=== PATIENT | male | born 1945 | race Caucasian/White ===

== ENCOUNTER 2016-12-18 14:52 | Inpatient (IN) | payer OTHER ==
[~2016-12-18] VITALS: Ht 185.4 cm; Wt 95.2 kg
[~2016-12-18 14:52] MED LIST: ALDACTONE50 MG PO; ALEVE220 MG PO; ANTACID GELATI1 EACH PO; ASCORBIC ACID500 M3 PO; B COMPLETE1 EACH PO; BUSPAR5 MG PO; CALCIUM 600 +1 EA15 PO; CLARITIN,ALAVAR10 MG PO; CLARITIN10 M3 PO; COLACE100 MG PO; COUMADIN1 MG PO; DELTASONE20 M1 PO; DEXILANT60 MG PO; DILAUDID2 MG PO; EFFEXOR XR75 MG PO; EFFEXOR75 MG PO; ENDOCET 5-3251 EACH PO; ENULOSE10 GM/15 M PO; FISH OIL 1,0001 EAC7 PO; FISH OIL CONC1 EACH PO; FOLIC ACID1 MG PO; GABAPENTIN100 MG PO; GABAPENTIN300 MG PO; HYDROMORPHONE HC2 MG PO; INDERAL20 MG PO; KRISTALOSE10 GM PO; LACTULOSE10 GM/151 PO; LASIX40 MG PO; LASIX80 MG PO; LEVAQUIN500 MG PO; LEVOTHYROXINE25 MCG PO; LEXAPRO; LEXAPRO20 MG PO; MAG-OXIDE400 MG PO; MECLIZINE HCL25 MG PO; MORPHINE SULFAT15 M1 PO; NAPROSYN500 MG PO; NEURONTIN300 MG PO; NORVASC10 MG PO; OMEPRAZOLE40 M1 PO; OXYCODONE HCL5 MG PO; PROPRANOLOL HCL10 MG PO; PROTONIX40 MG PO; PROVENTIL,2.5 MG/3 M IH; ROBITUSSIN AC,T10 ML PO; SPIRONOLACTONE100 MG PO; SPIRONOLACTONE50 MG PO; SUPER B WITH V1 EACH PO; SYNTHROID25 MCG PO; THERAGRAN1 TABLET PO; TIZANIDINE HCL2 MG PO; TOPAMAX25 MG PO; TRAZAMINE PO; TRAZODONE HCL50 MG PO; VAPOR INHALER50 MG BOTH NARES; VENTOLIN HFA18 GM IH; VITAMIN B-1100 MG PO; VITAMIN D2000 UNIT PO; VITAMIN D31000 UNIT PO; ZADITOR 0.100 DROP/5 BOTH EYES; ZINC30 M1 PO
[2016-12-18 17:28] LABS: HEMATOCRIT 32.6 % (38.0-50.0); MCH 25.3 PG (29.0-34.0); MCHC 30.7 G/DL (30.0-36.0); MCV 82.5 FL (86-99); MEAN PLAT.VOLUME 10.4 uM^3 (9.0-12.4); PLATELET COUNT 117 K/uL (156-360); RBC DIS.WIDTH-CV 18.5 % (11.8-14.6); RBC DIS.WIDTH-SD 55.8 % (39-53); RED BLOOD COUNT 3.95 M/uL (4.00-5.50); WHITE BLOOD COUNT 8.9 K/uL (4.1-10.2)
[2016-12-18 17:35] LABS: INTER. NORMALIZED RATIO 1.2; PROTHROMBIN TIME 13.1 SEC (10.2-12.9)
[2016-12-18 17:36] LABS: CHLORIDE 108 mEq/L (99-109); SODIUM 143 mEq/L (136-147)
[2016-12-18 17:38] LABS: GLUCOSE 91 mg/dL (70-99)
[2016-12-18 17:39] LABS: ANION GAP 9 MEQ/L (2-14)
[2016-12-18 17:42] LABS: GFR ESTIMATE (CALCULATED) > 59 mL/min/
[2016-12-18 17:43] LABS: UREA NITROGEN (BUN) 15 mg/dL (9-23)
[2016-12-18 17:48] LABS: TROP-I INTERPRETATION NEGATIVE; TROPONIN-I < 0.01 ng/mL (0.0-0.30)
[2016-12-18 18:02] LABS: POTASSIUM 3.2 mEq/L (3.7-5.4)
[2016-12-18] MEDS ORDERED: MIRTAZAPINE7.5 MG PO (19:55)
[2016-12-18] MEDS ORDERED: INDERAL10 MG PO (19:55)
[2016-12-18] MEDS ORDERED: FISH OIL 1,0001 EAC7 PO (19:57)
[2016-12-18 21:45] VITALS: BP 131/82
[2016-12-18 22:00] VITALS: BP 126/79
[2016-12-18 23:00] VITALS: BP 131/79
[2016-12-18 23:06] LABS: METH RESISTANT S AUREUS PCR NEGATIVE (NEGATIVE)
[2016-12-18 23:09] LABS: PROBE CHECK PASS; SPECIMEN PROCESSING CONTROL PASS
[2016-12-19] VITALS (14 sets, daily range): BP systolic 120–144; BP diastolic 73–97
[2016-12-19 06:07] LABS: HEMATOCRIT 33.8 % (38.0-50.0); MCH 24.4 PG (29.0-34.0); MCHC 29.6 G/DL (30.0-36.0); MCV 82.6 FL (86-99); PLATELET COUNT 84 K/uL (156-360); RBC DIS.WIDTH-CV 18.5 % (11.8-14.6); RBC DIS.WIDTH-SD 55.8 % (39-53); RED BLOOD COUNT 4.09 M/uL (4.00-5.50); WHITE BLOOD COUNT 5.5 K/uL (4.1-10.2)
[2016-12-19 06:22] LABS: ALKALINE PHOSPHATASE 73 IU/L (3-129); ANION GAP 10 MEQ/L (2-14); CHLORIDE 106 MEQ/L (99-109); GFR ESTIMATE (CALCULATED) > 59 mL/min/; GLUCOSE 82 mg/dL (70-99); POTASSIUM 3.7 MEQ/L (3.7-5.4); SAMPLE HEMOLYSIS CHECK 0; SAMPLE ICTERIC CHECK 0; SAMPLE LIPEMIA CHECK 0; SODIUM 141 MEQ/L (136-147); TOTAL BILIRUBIN 2.1 MG/DL (0.0-1.0); UREA NITROGEN (BUN) 13 mg/dL (9-23)
[2016-12-19] MEDS ORDERED: NORCO 5/3251 TABLET PO (10:56)
== END 2016-12-19 14:55 | disposition home or self-care (01) | DRG 84 ==
LOC: EME 14:52 → EDOF 19:50 → ENRESERV 19:59 → 4WEST 21:42 → ENPENDDIS 12-19 15:30
PROVIDERS: Emergency Medicine; Surgery
PROC: 0HQ1XZZ Repair Face Skin, External Approach (ICD-10-PCS; principal; 2016-12-18)
DX: S06.5X9A Traumatic subdural hemorrhage with loss of consciousness of unspecified duration, initial encounter (principal); S01.21XA Laceration without foreign body of nose, initial encounter; K70.30 Alcoholic cirrhosis of liver without ascites; W01.0XXA Fall on same level from slipping, tripping and stumbling without subsequent striking against object, initial encounter; S02.2XXA Fracture of nasal bones, initial encounter for closed fracture; Z96.611 Presence of right artificial shoulder joint; Z87.891 Personal history of nicotine dependence; Z91.81 History of falling; Z85.818 Personal history of malignant neoplasm of other sites of lip, oral cavity, and pharynx
CPT/HCPCS: 70450; 70486; 71010; 72125; 80048; 80053; 84484; 85027; 85610; 87641; 93005; 99281; 99285; J3480; S0028

== ENCOUNTER → 2017-07-30 | Outpatient (CLI) | payer OTHER ==
[~2017-07-30] VITALS: Ht 185.4 cm; Wt 106.8 kg
[~2017-07-30] MED LIST changes: +INDERAL10 MG PO; +MIRTAZAPINE7.5 MG PO; +NORCO 5/3251 TABLET PO
[2017-07-30 08:32] LABS: HEMATOCRIT 28.6 % (38.0-50.0); HEMOGLOBIN 8.6 G/DL (12.5-16.6); MCH 23.1 PG (29.0-34.0); MCHC 30.1 G/DL (30.0-36.0); MCV 76.7 FL (86-99); PLATELET COUNT 131 K/uL (156-360); RBC DIS.WIDTH-CV 21.3 % (11.8-14.6); RBC DIS.WIDTH-SD 58.4 % (39-53); RED BLOOD COUNT 3.73 M/uL (4.00-5.50); WHITE BLOOD COUNT 5.5 K/uL (4.1-10.2)
[2017-07-30 08:40] LABS: CHLORIDE 107 mEq/L (99-109); POTASSIUM 4.2 mEq/L (3.7-5.4); SODIUM 141 mEq/L (136-147)
[2017-07-30 08:42] LABS: GLUCOSE 117 mg/dL (70-99); TOTAL PROTEIN 6.5 g/dL (6.4-8.3)
[2017-07-30 08:44] LABS: TOTAL BILIRUBIN 1.3 mg/dL (0.0-1.0)
[2017-07-30 08:45] LABS: INTER. NORMALIZED RATIO 1.3
[2017-07-30 08:46] LABS: ALKALINE PHOSPHATASE 174 IU/L (3-129); CREATININE 0.7 mg/dL (0.6-1.3); GFR ESTIMATE (CALCULATED) > 59 mL/min/ (58.99-99999)
[2017-07-30 08:47] LABS: UREA NITROGEN (BUN) 14 mg/dL (9-23)
[2017-07-30 08:48] LABS: AST (GOT) 95 IU/L (2-34)
[2017-07-30 08:49] LABS: ALT (GPT) 26 IU/L (3-49)
[2017-07-30 12:39] VITALS: BP 142/78
== END | disposition home or self-care (01) ==
LOC: AMB 07:00 → EDSTATUS 07:00 → EME 07:02 → AMB 07:02
PROVIDERS: Emergency Medicine
PROC: 0DB68ZX Excision of Stomach, Via Natural or Artificial Opening Endoscopic, Diagnostic (ICD-10-PCS; principal; 2017-07-30)
DX: K76.6 Portal hypertension (principal); I85.10 Secondary esophageal varices without bleeding; B37.81 Candidal esophagitis; K21.0 Gastro-esophageal reflux disease with esophagitis; D64.9 Anemia, unspecified; K31.89 Other diseases of stomach and duodenum; I10 Essential (primary) hypertension; F41.8 Other specified anxiety disorders
CPT/HCPCS: 71045; 76705; 80053; 82140; 85027; 85610; 88305; 88342 TC; 99281; 99283; J7643

== ENCOUNTER 2017-08-14 16:27 | Emergency (ER) | payer OTHER ==
[~2017-08-14] VITALS: Ht 185.4 cm; Wt 106.2 kg
[2017-08-14 17:19] LABS: HEMATOCRIT 28.6 % (38.0-50.0); MCH 23.6 PG (29.0-34.0); MCHC 31.5 G/DL (30.0-36.0); MCV 75.1 FL (86-99); PLATELET COUNT 151 K/uL (156-360); RBC DIS.WIDTH-CV 24.6 % (11.8-14.6); RBC DIS.WIDTH-SD 60.5 % (39-53); RED BLOOD COUNT 3.81 M/uL (4.00-5.50); WHITE BLOOD COUNT 8.8 K/uL (4.1-10.2)
[2017-08-14 17:25] LABS: BASOPHIL (%) 0.5 % (0-1); EOSINOPHIL (%) 0.3 % (0-5); IMMATURE GRANULOCYTE (%) 0.3 % (0.0-0.7); LYMPHOCYTE (%) 23.8 % (15-42); LYMPHOCYTE COUNT 2.1 K/uL (1.0-2.8); MONOCYTE (%) 17.3 % (3-12); MONOCYTE COUNT 1.5 K/uL (0-0.8); NEUTROPHIL (%) 57.8 % (45-76); NEUTROPHIL COUNT 5.1 K/uL (1.8-6.4)
[2017-08-14 17:40] LABS: CHLORIDE 104 mEq/L (99-109); POTASSIUM 4.2 mEq/L (3.7-5.4); SODIUM 140 mEq/L (136-147)
[2017-08-14 17:41] LABS: MAGNESIUM 2.1 mg/dL (1.3-2.7)
[2017-08-14 17:43] LABS: GLUCOSE 102 mg/dL (70-99); TOTAL PROTEIN 6.7 g/dL (6.4-8.3)
[2017-08-14 17:44] LABS: TOTAL BILIRUBIN 6.8 mg/dL (0.0-1.0)
[2017-08-14 17:46] LABS: ALKALINE PHOSPHATASE 197 IU/L (3-129); GFR ESTIMATE (CALCULATED) > 59 mL/min/ (58.99-99999); SERUM ETHYL ALCOHOL < 10 mg/dL
[2017-08-14 17:47] LABS: UREA NITROGEN (BUN) 26 mg/dL (9-23)
[2017-08-14 17:48] LABS: AST (GOT) 147 IU/L (2-34)
[2017-08-14 17:49] LABS: ALT (GPT) 36 IU/L (3-49); TROP-I INTERPRETATION NEGATIVE; TROPONIN-I < 0.01 ng/mL (0.0-0.30)
[2017-08-14 17:50] LABS: LIPASE 99 U/L (1.0-51.0)
[2017-08-14 18:39] LABS: APPEARANCE SL.HAZY ((CLEAR)); BILIRUBIN NEGATIVE; BLOOD NEGATIVE; COLOR AMBER ((YELLOW)); GLUCOSE (STRIP) NEGATIVE; KETONES 20; LEUKOCYTES TRACE; NITRITE NEGATIVE; PROTEIN (STRIP) 30
[2017-08-14 19:05] LABS: AMPHETAMINE NEGATIVE (500 ng/mL); BARBITURATES NEGATIVE (200 ng/mL); BENZODIAZEPINES NEGATIVE (150 ng/mL); BUPRENORPHINE NEGATIVE (10 ng/mL); COCAINE NEGATIVE (150 ng/mL); METHADONE NEGATIVE (200 ng/mL); METHAMPHETAMINE NEGATIVE (500 ng/mL); OPIATES (MORPHINE) PRESUMPTIVE POSITIVE (100 ng/mL); OXYCODONE NEGATIVE (100 ng/mL); PHENCYCLIDINE NEGATIVE (25 ng/mL); PROPOXYPHENE NEGATIVE (300 ng/mL); THC CANNABINOIDS NEGATIVE (50 ng/mL); TRICYCLIC ANTIDEPRESSANTS NEGATIVE (300 ng/mL)
[2017-08-14 19:10] LABS: BACTERIA RARE /HPF; EPITHELIAL CELLS RARE /HPF; MUCUS 2+ /LPF; RED BLOOD CELLS 0-5 /HPF (0-5); WHITE BLOOD CELLS 15-20 /HPF (0-5)
[2017-08-14] MEDS ORDERED: PERCOCET 10/1 TABLET PO (21:59)
[2017-08-14] MEDS ORDERED: CARAFATE1 GM PO (21:59)
[2017-08-14 22:03] VITALS: BP 133/68
== END 2017-08-14 22:03 | disposition home or self-care (01) ==
LOC: EME 16:27
PROVIDERS: Emergency Medicine
DX: K74.60 Unspecified cirrhosis of liver (principal); K85.90 Acute pancreatitis without necrosis or infection, unspecified; K29.70 Gastritis, unspecified, without bleeding; B19.20 Unspecified viral hepatitis C without hepatic coma; J45.909 Unspecified asthma, uncomplicated; F03.90 Unspecified dementia, unspecified severity, without behavioral disturbance, psychotic disturbance, mood disturbance, and anxiety; E03.9 Hypothyroidism, unspecified; F41.9 Anxiety disorder, unspecified; F32.9 Major depressive disorder, single episode, unspecified; Z85.818 Personal history of malignant neoplasm of other sites of lip, oral cavity, and pharynx; Z87.891 Personal history of nicotine dependence
CPT/HCPCS: 71045; 74177; 80053; 81003; 82140; 83690; 83735; 83880; 84484; 84999; 85025; 93005; 99281; 99285; G0480; J7030

== ENCOUNTER → 2017-08-21 | Outpatient (CLI) | payer OTHER ==
[~2017-08-21] MED LIST changes: +CARAFATE1 GM PO; +PERCOCET 10/1 TABLET PO
[2017-08-21 14:04] LABS: TYPE OF FLUID PARACENTESIS
[2017-08-21 14:53] LABS: APPEARANCE CLEAR-YELLOW; BODY FLUID EOSINOPHILS 0 % (0-25); BODY FLUID RBC'S 1000 /MM^3 (0-100); BODY FLUID WBC'S 325 /MM^3 (0-500); MONONUCLEAR WBC'S 95 %; POLYNUCLEAR WBC'S 5 % (0-25)
[2017-08-21 15:07] LABS: BODY FLUID PROTEIN < 3.0 G/DL
== END | disposition home or self-care (01) ==
LOC: RAD 13:12
PROVIDERS: Internal Medicine Gastroenterology
PROC: 0W9G3ZZ Drainage of Peritoneal Cavity, Percutaneous Approach (ICD-10-PCS; principal; 2017-08-21)
DX: K70.31 Alcoholic cirrhosis of liver with ascites (principal)
CPT/HCPCS: 49083; 84157; 87070; 87205; 88108; 89051

== ENCOUNTER 2017-09-13 10:58 | Inpatient (IN) | payer OTHER ==
[~2017-09-13] VITALS: Ht 182.9 cm; Wt 91.9 kg
[~2017-09-13 10:58] MED LIST changes: -EFFEXOR XR75 MG PO; -SPIRONOLACTONE50 MG PO; +VENLAFAXINE HCL75 M3 PO
[2017-09-13 11:51] LABS: BASOPHIL (%) 0.6 % (0-1); BASOPHIL COUNT 0.1 K/uL (0-0.1); EOSINOPHIL (%) 0.8 % (0-5); EOSINOPHIL COUNT 0.1 K/uL (0-0.3); HEMATOCRIT 33.6 % (38.0-50.0); HEMOGLOBIN 10.5 G/DL (12.5-16.6); IMMATURE GRANULOCYTE (%) 0.3 % (0.0-0.7); LYMPHOCYTE (%) 26.4 % (15-42); LYMPHOCYTE COUNT 2.5 K/uL (1.0-2.8); MCH 26.7 PG (29.0-34.0); MCHC 31.3 G/DL (30.0-36.0); MONOCYTE (%) 13.2 % (3-12); MONOCYTE COUNT 1.3 K/uL (0-0.8); NEUTROPHIL (%) 58.7 % (45-76); NEUTROPHIL COUNT 5.6 K/uL (1.8-6.4); PLATELET COUNT 194 K/uL (156-360); RBC DIS.WIDTH-SD 82.3 % (39-53); RED BLOOD COUNT 3.93 M/uL (4.00-5.50); WHITE BLOOD COUNT 9.5 K/uL (4.1-10.2)
[2017-09-13 11:57] LABS: MCV 85.5 FL (86-99)
[2017-09-13 11:58] LABS: CHLORIDE 102 mEq/L (99-109); SODIUM 133 mEq/L (136-147)
[2017-09-13 12:00] LABS: GLUCOSE 133 mg/dL (70-99); TOTAL PROTEIN 7.6 g/dL (6.4-8.3)
[2017-09-13 12:01] LABS: CARBON DIOXIDE (BICARBONATE) 27.1 MEQ/L (20-31)
[2017-09-13 12:02] LABS: TOTAL BILIRUBIN 6.3 mg/dL (0.0-1.0)
[2017-09-13 12:03] LABS: SERUM ETHYL ALCOHOL < 10 mg/dL
[2017-09-13 12:04] LABS: ALKALINE PHOSPHATASE 147 IU/L (3-129); GFR ESTIMATE (CALCULATED) > 59 mL/min/ (58.99-99999)
[2017-09-13 12:05] LABS: AST (GOT) 183 IU/L (2-34); UREA NITROGEN (BUN) 18 mg/dL (9-23)
[2017-09-13 12:07] LABS: ALT (GPT) 43 IU/L (3-49); TROP-I INTERPRETATION NEGATIVE; TROPONIN-I 0.01 ng/mL (0.0-0.30)
[2017-09-13 12:18] LABS: INTER. NORMALIZED RATIO 1.3
[2017-09-13 12:21] LABS: PTT 34.4 SEC (25-37)
[2017-09-13 12:34] LABS: LIPASE 75 U/L (1.0-51.0)
[2017-09-13 12:37] LABS: AMPHETAMINE NEGATIVE (500 ng/mL); BARBITURATES NEGATIVE (200 ng/mL); BENZODIAZEPINES NEGATIVE (150 ng/mL); BUPRENORPHINE NEGATIVE (10 ng/mL); COCAINE NEGATIVE (150 ng/mL); METHADONE NEGATIVE (200 ng/mL); METHAMPHETAMINE NEGATIVE (500 ng/mL); OPIATES (MORPHINE) PRESUMPTIVE POSITIVE (100 ng/mL); OXYCODONE NEGATIVE (100 ng/mL); PHENCYCLIDINE NEGATIVE (25 ng/mL); PROPOXYPHENE NEGATIVE (300 ng/mL); THC CANNABINOIDS NEGATIVE (50 ng/mL); TRICYCLIC ANTIDEPRESSANTS NEGATIVE (300 ng/mL)
[2017-09-13] MEDS ORDERED: MIRTAZAPINE7.5 MG PO (13:12)
[2017-09-13 14:14] LABS: TYPE OF FLUID PD FLUID
[2017-09-13 14:47] VITALS: BP 137/85
[2017-09-13 14:56] LABS: APPEARANCE CLOUDY-BLOODY; BODY FLUID EOSINOPHILS 0 % (0-25); BODY FLUID RBC'S 1000 /MM^3 (0-100); BODY FLUID WBC'S 307 /MM^3 (0-500); COMMENT MANY MACROPHAGES AND MESOTHELIAL CELLS SEEN; MONONUCLEAR WBC'S 82 %; POLYNUCLEAR WBC'S 18 % (0-25)
[2017-09-13 19:49] VITALS: BP 133/75
[2017-09-13 23:55] VITALS: BP 127/72
[2017-09-14 04:11] VITALS: BP 126/76
[2017-09-14 05:52] LABS: HEMATOCRIT 28.6 % (38.0-50.0); HEMOGLOBIN 9.1 G/DL (12.5-16.6); MCHC 31.8 G/DL (30.0-36.0); MCV 84.9 FL (86-99); PLATELET COUNT 147 K/uL (156-360); RBC DIS.WIDTH-CV 26.5 % (11.8-14.6); RBC DIS.WIDTH-SD 79.6 % (39-53); RED BLOOD COUNT 3.37 M/uL (4.00-5.50); WHITE BLOOD COUNT 8.5 K/uL (4.1-10.2)
[2017-09-14 06:20] LABS: ALBUMIN 2.6 G/DL (3.2-4.8); ALKALINE PHOSPHATASE 113 IU/L (3-129); ALT (GPT) 28 IU/L (3-49); AST (GOT) 112 IU/L (2-34); CHLORIDE 105 MEQ/L (99-109); CREATININE 0.7 MG/DL (0.6-1.3); GFR ESTIMATE (CALCULATED) > 59 mL/min/ (58.99-99999); GLUCOSE 105 mg/dL (70-99); POTASSIUM 4.3 MEQ/L (3.7-5.4); SODIUM 137 MEQ/L (136-147); TOTAL BILIRUBIN 5.4 MG/DL (0.0-1.0); TOTAL PROTEIN 5.8 G/DL (6.4-8.3); UREA NITROGEN (BUN) 18 mg/dL (9-23)
[2017-09-14 07:32] VITALS: BP 138/79
[2017-09-14 11:22] VITALS: BP 140/74
[2017-09-14 15:28] VITALS: BP 143/80
[2017-09-14 20:13] VITALS: BP 128/72
[2017-09-15 00:53] VITALS: BP 142/67
[2017-09-15 04:58] VITALS: BP 127/67
[2017-09-15 05:38] LABS: HEMOGLOBIN 9.2 G/DL (12.5-16.6); MCH 26.4 PG (29.0-34.0); MCHC 31.7 G/DL (30.0-36.0); MCV 83.1 FL (86-99); PLATELET COUNT 155 K/uL (156-360); RBC DIS.WIDTH-CV 26.2 % (11.8-14.6); RBC DIS.WIDTH-SD 76.8 % (39-53); RED BLOOD COUNT 3.49 M/uL (4.00-5.50)
[2017-09-15 05:40] LABS: BASOPHIL (%) 0.4 % (0-1); EOSINOPHIL COUNT 0.1 K/uL (0-0.3); IMMATURE GRANULOCYTE (%) 0.3 % (0.0-0.7); LYMPHOCYTE COUNT 2.8 K/uL (1.0-2.8); MONOCYTE (%) 15.1 % (3-12); MONOCYTE COUNT 1.1 K/uL (0-0.8); NEUTROPHIL (%) 43.2 % (45-76)
[2017-09-15 06:01] LABS: ALBUMIN 2.5 G/DL (3.2-4.8); ALKALINE PHOSPHATASE 109 IU/L (3-129); ALT (GPT) 29 IU/L (3-49); AST (GOT) 110 IU/L (2-34); CHLORIDE 103 MEQ/L (99-109); CREATININE 0.8 MG/DL (0.6-1.3); GFR ESTIMATE (CALCULATED) > 59 mL/min/ (58.99-99999); GLUCOSE 96 mg/dL (70-99); POTASSIUM 3.8 MEQ/L (3.7-5.4); SODIUM 135 MEQ/L (136-147); TOTAL PROTEIN 6.2 G/DL (6.4-8.3); UREA NITROGEN (BUN) 17 mg/dL (9-23)
[2017-09-15 07:45] VITALS: BP 130/74
[2017-09-15 11:32] VITALS: BP 154/78
[2017-09-15 16:14] VITALS: BP 134/78
[2017-09-15 19:34] VITALS: BP 123/66
[2017-09-16 00:37] VITALS: BP 117/74
[2017-09-16 03:57] VITALS: BP 142/80
[2017-09-16 07:07] LABS: CHLORIDE 106 MEQ/L (99-109); CREATININE 0.7 MG/DL (0.6-1.3); GFR ESTIMATE (CALCULATED) > 59 mL/min/ (58.99-99999); GLUCOSE 93 mg/dL (70-99); POTASSIUM 4.5 MEQ/L (3.7-5.4); SODIUM 137 MEQ/L (136-147); UREA NITROGEN (BUN) 15 mg/dL (9-23)
[2017-09-16 07:31] LABS: HEMATOCRIT 29.4 % (38.0-50.0); HEMOGLOBIN 9.4 G/DL (12.5-16.6); MCH 26.6 PG (29.0-34.0); MCV 83.3 FL (86-99); NRBC (%) 0.3 /100 WBC (0-0); PLATELET COUNT 158 K/uL (156-360); RBC DIS.WIDTH-SD 75.7 % (39-53); RED BLOOD COUNT 3.53 M/uL (4.00-5.50); WHITE BLOOD COUNT 7.5 K/uL (4.1-10.2)
[2017-09-16 07:33] LABS: BASOPHIL (%) 0.5 % (0-1); EOSINOPHIL (%) 1.1 % (0-5); EOSINOPHIL COUNT 0.1 K/uL (0-0.3); IMMATURE GRANULOCYTE (%) 0.3 % (0.0-0.7); LYMPHOCYTE (%) 39.5 % (15-42); MONOCYTE COUNT 1.1 K/uL (0-0.8); NEUTROPHIL (%) 44.6 % (45-76); NEUTROPHIL COUNT 3.4 K/uL (1.8-6.4)
[2017-09-16 07:54] VITALS: BP 130/75
[2017-09-16 12:15] VITALS: BP 128/75
[2017-09-16] MEDS ORDERED: XIFAXAN550 MG PO (13:00)
[2017-09-16] MEDS ORDERED: KRISTALOSE20 GM PO (13:02)
[2017-09-16] MEDS ORDERED: TYLENOL REGULA325 MG PO (13:03)
[2017-09-16 15:50] VITALS: BP 123/60
[2017-10-02] MEDS ORDERED: MELATONIN5 M1 PO (13:18)
== END 2017-09-16 18:22 | DRG 441 ==
LOC: EME 10:58 → 4EAST 12:45 → EDOF 12:45 → ENRESERV 12:46 → 4EAST 14:25 → CANRESERV 09-15 18:05 → ENRESERV 09-15 18:05 → CANRESERV 09-15 23:31 → ENRESERV 09-15 23:31 → ENPENDDIS 09-16 → 4EAST 09-16 18:22
PROVIDERS: Emergency Medicine; Hospitalist; Internal Medicine; Internal Medicine Gastroenterology
PROC: 0W9G3ZZ Drainage of Peritoneal Cavity, Percutaneous Approach (ICD-10-PCS; principal; 2017-09-13)
DX: K72.90 Hepatic failure, unspecified without coma (principal); K65.2 Spontaneous bacterial peritonitis; K70.31 Alcoholic cirrhosis of liver with ascites; B18.2 Chronic viral hepatitis C; E87.2 Acidosis; F10.20 Alcohol dependence, uncomplicated; Z66 Do not resuscitate; K76.6 Portal hypertension; G89.4 Chronic pain syndrome; K76.0 Fatty (change of) liver, not elsewhere classified; F17.290 Nicotine dependence, other tobacco product, uncomplicated; D64.9 Anemia, unspecified
CPT/HCPCS: 49083; 70450; 71045; 80048; 80053; 81003; 82105 90; 82140; 82803; 83605; 83690; 84484; 84999; 85025; 85027; 85610; 85730; 87040; 87070; 87075; 87205; 89051; 94760; 97530 GO; 97530 GP; 99281; 99285; G0480; J0696; J1644

== ENCOUNTER → 2017-10-02 | Outpatient (CLI) | payer OTHER ==
[~2017-10-02] MED LIST changes: +KRISTALOSE20 GM PO; +MELATONIN5 M1 PO; +TYLENOL REGULA325 MG PO; +XIFAXAN550 MG PO
== END | disposition home or self-care (01) ==
LOC: RAD 12:59
PROC: 0W9G3ZZ Drainage of Peritoneal Cavity, Percutaneous Approach (ICD-10-PCS; principal; 2017-10-02)
DX: R18.8 Other ascites (principal)
CPT/HCPCS: 49083

== ENCOUNTER 2017-10-14 19:44 | Emergency (ER) | payer OTHER ==
[~2017-10-14] VITALS: Ht 185.4 cm; Wt 92.1 kg
[2017-10-14 20:18] LABS: HEMATOCRIT 30.5 % (38.0-50.0); HEMOGLOBIN 10.3 G/DL (12.5-16.6); MCH 27.7 PG (29.0-34.0); MCHC 33.8 G/DL (30.0-36.0); PLATELET COUNT 198 K/uL (156-360); RBC DIS.WIDTH-CV 18.3 % (11.8-14.6); RBC DIS.WIDTH-SD 55.2 % (39-53); RED BLOOD COUNT 3.72 M/uL (4.00-5.50); WHITE BLOOD COUNT 10.4 K/uL (4.1-10.2)
[2017-10-14 20:32] LABS: CHLORIDE 97 mEq/L (99-109); POTASSIUM 3.9 mEq/L (3.7-5.4); SODIUM 132 mEq/L (136-147)
[2017-10-14 20:34] LABS: GLUCOSE 114 mg/dL (70-99)
[2017-10-14 20:38] LABS: GFR ESTIMATE (CALCULATED) > 59 mL/min/ (58.99-99999)
[2017-10-14 20:39] LABS: TROP-I INTERPRETATION NEGATIVE; TROPONIN-I < 0.01 ng/mL (0.0-0.30); UREA NITROGEN (BUN) 21 mg/dL (9-23)
[2017-10-14 22:56] LABS: APPEARANCE SL.HAZY ((CLEAR)); BILIRUBIN NEGATIVE; BLOOD NEGATIVE; COLOR AMBER ((YELLOW)); GLUCOSE (STRIP) NEGATIVE; KETONES NEGATIVE; LEUKOCYTES NEGATIVE; NITRITE NEGATIVE; PROTEIN (STRIP) 30; SPECIFIC GRAVITY 1.026 (1.000-1.030); UROBILINOGEN 0.2 MG/DL (0.2-1.0)
[2017-10-14 23:01] LABS: BACTERIA RARE /HPF; CALCIUM OXALATE CRYSTALS 4+ /HPF; EPITHELIAL CELLS RARE /HPF; HYALINE CASTS 20-30 /LPF; MUCUS 2+ /LPF; RED BLOOD CELLS 0-5 /HPF (0-5); UCUL ADDED? NO; WHITE BLOOD CELLS 0-5 /HPF (0-5)
[2017-10-14 23:12] VITALS: BP 117/72
== END 2017-10-14 23:13 | disposition home or self-care (01) ==
LOC: EME 19:44
PROVIDERS: Emergency Medicine
DX: R18.8 Other ascites (principal); K72.90 Hepatic failure, unspecified without coma; D64.9 Anemia, unspecified; K74.60 Unspecified cirrhosis of liver; B19.20 Unspecified viral hepatitis C without hepatic coma; I10 Essential (primary) hypertension; J45.909 Unspecified asthma, uncomplicated; F03.90 Unspecified dementia, unspecified severity, without behavioral disturbance, psychotic disturbance, mood disturbance, and anxiety; E03.9 Hypothyroidism, unspecified; F32.9 Major depressive disorder, single episode, unspecified; F41.9 Anxiety disorder, unspecified; Z87.891 Personal history of nicotine dependence; Z85.819 Personal history of malignant neoplasm of unspecified site of lip, oral cavity, and pharynx
CPT/HCPCS: 71046; 80048; 81003; 82140; 84484; 85027; 93005; 99281; 99284

== ENCOUNTER → 2017-10-16 | Outpatient (CLI) | payer OTHER ==
[2017-10-16 13:54] LABS: TYPE OF FLUID PARACENTESIS
[2017-10-16 14:55] LABS: APPEARANCE YELLOW-CLOUDY; BODY FLUID EOSINOPHILS 0 % (0-25); BODY FLUID RBC'S 1000 /MM^3 (0-100); BODY FLUID WBC'S 376 /MM^3 (0-500); MONONUCLEAR WBC'S 70 %; POLYNUCLEAR WBC'S 30 % (0-25)
[2017-10-16 15:14] LABS: BODY FLUID PROTEIN < 3.0 G/DL
== END | disposition home or self-care (01) ==
LOC: RAD 13:08
PROVIDERS: Internal Medicine Gastroenterology
PROC: 0W9G3ZZ Drainage of Peritoneal Cavity, Percutaneous Approach (ICD-10-PCS; principal; 2017-10-16)
DX: R18.8 Other ascites (principal)
CPT/HCPCS: 49083; 84157; 87070; 87205; 88108; 89051

== ENCOUNTER → 2017-10-30 | Outpatient (CLI) | payer OTHER ==
[~2017-10-30] MED LIST changes: +GENERLAC10 GM/15 M PO; +LASIX20 MG PO; -OMEPRAZOLE40 M1 PO; +PRILOSEC20 MG PO
[2017-10-30 08:46] LABS: TYPE OF FLUID PARACENTESIS
[2017-10-30 09:23] LABS: APPEARANCE YELLOW- CLOUDY; BODY FLUID EOSINOPHILS 0 % (0-25); BODY FLUID PROTEIN < 3.0 G/DL; BODY FLUID RBC'S < 1000 /MM^3 (0-100); BODY FLUID WBC'S 294 /MM^3 (0-500); MONONUCLEAR WBC'S 93 %; POLYNUCLEAR WBC'S 7 % (0-25)
== END | disposition home or self-care (01) ==
LOC: RAD 08:05
PROVIDERS: Internal Medicine Gastroenterology
PROC: 0W9G3ZZ Drainage of Peritoneal Cavity, Percutaneous Approach (ICD-10-PCS; principal; 2017-10-30)
DX: R18.8 Other ascites (principal)
CPT/HCPCS: 49083; 84157; 87070; 87075; 87205; 88108; 89051

== ENCOUNTER 2017-11-02 10:03 | Inpatient (IN) | payer OTHER ==
[~2017-11-02] VITALS: Ht 185.4 cm; Wt 93.0 kg
[~2017-11-02 10:03] MED LIST changes: -GENERLAC10 GM/15 M PO; -LASIX20 MG PO
[2017-11-02 11:20] LABS: BASOPHIL (%) 0.6 % (0-1); BASOPHIL COUNT 0.1 K/uL (0-0.1); EOSINOPHIL (%) 0.6 % (0-5); EOSINOPHIL COUNT 0.1 K/uL (0-0.3); HEMATOCRIT 28.4 % (38.0-50.0); HEMOGLOBIN 9.7 G/DL (12.5-16.6); IMMATURE GRANULOCYTE (%) 0.4 % (0.0-0.7); LYMPHOCYTE (%) 24.5 % (15-42); LYMPHOCYTE COUNT 2.2 K/uL (1.0-2.8); MCH 26.9 PG (29.0-34.0); MCHC 34.2 G/DL (30.0-36.0); MCV 78.9 FL (86-99); MONOCYTE (%) 13.5 % (3-12); MONOCYTE COUNT 1.2 K/uL (0-0.8); NEUTROPHIL (%) 60.4 % (45-76); NEUTROPHIL COUNT 5.4 K/uL (1.8-6.4); PLATELET COUNT 203 K/uL (156-360); RBC DIS.WIDTH-SD 48.3 % (39-53); WHITE BLOOD COUNT 8.9 K/uL (4.1-10.2)
[2017-11-02 11:25] LABS: INTER. NORMALIZED RATIO 1.2
[2017-11-02 11:28] LABS: PTT 29.5 SEC (25-37)
[2017-11-02 11:28] LABS: ALBUMIN 2.7 g/dL (3.2-4.8); CHLORIDE 94 mEq/L (99-109); POTASSIUM 4.4 mEq/L (3.7-5.4); SODIUM 125 mEq/L (136-147)
[2017-11-02 11:30] LABS: GLUCOSE 111 mg/dL (70-99)
[2017-11-02 11:31] LABS: TOTAL PROTEIN 6.5 g/dL (6.4-8.3)
[2017-11-02 11:32] LABS: TOTAL BILIRUBIN 2.6 mg/dL (0.0-1.0)
[2017-11-02 11:34] LABS: ALKALINE PHOSPHATASE 125 IU/L (3-129); CREATININE 1.1 mg/dL (0.6-1.3); GFR ESTIMATE (CALCULATED) > 59 mL/min/ (58.99-99999)
[2017-11-02 11:35] LABS: UREA NITROGEN (BUN) 20 mg/dL (9-23)
[2017-11-02 11:36] LABS: AST (GOT) 62 IU/L (2-34)
[2017-11-02 11:37] LABS: ALT (GPT) 29 IU/L (3-49)
[2017-11-02] MEDS ORDERED: LASIX20 MG PO (13:29)
[2017-11-02] MEDS ORDERED: MIRTAZAPINE7.5 MG PO (13:30)
[2017-11-02] MEDS ORDERED: CLARITIN10 M3 PO (13:30)
[2017-11-02] MEDS ORDERED: TYLENOL REGULA325 MG PO (13:34)
[2017-11-02] MEDS ORDERED: GENERLAC10 GM/15 M PO (13:35)
[2017-11-02 14:22] LABS: APPEARANCE CLEAR ((CLEAR)); BILIRUBIN NEGATIVE; BLOOD NEGATIVE; COLOR YELLOW ((YELLOW)); GLUCOSE (STRIP) NEGATIVE; KETONES NEGATIVE; LEUKOCYTES NEGATIVE; NITRITE NEGATIVE; PROTEIN (STRIP) NEGATIVE; SPECIFIC GRAVITY 1.023 (1.000-1.030); UCUL ADDED? NO; UROBILINOGEN 0.2 MG/DL (0.2-1.0)
[2017-11-02 15:58] VITALS: BP 111/66
[2017-11-02 20:37] VITALS: BP 107/65
[2017-11-02 23:19] VITALS: BP 111/70
[2017-11-03 04:31] VITALS: BP 99/60
[2017-11-03 06:32] LABS: BASOPHIL (%) 0.4 % (0-1); EOSINOPHIL (%) 0.7 % (0-5); EOSINOPHIL COUNT 0.1 K/uL (0-0.3); HEMATOCRIT 29.9 % (38.0-50.0); IMMATURE GRANULOCYTE (%) 0.4 % (0.0-0.7); LYMPHOCYTE (%) 27.3 % (15-42); LYMPHOCYTE COUNT 2.1 K/uL (1.0-2.8); MCH 26.5 PG (29.0-34.0); MCHC 33.4 G/DL (30.0-36.0); MCV 79.1 FL (86-99); MONOCYTE (%) 14.2 % (3-12); MONOCYTE COUNT 1.1 K/uL (0-0.8); NEUTROPHIL COUNT 4.3 K/uL (1.8-6.4); RBC DIS.WIDTH-SD 48.6 % (39-53); RED BLOOD COUNT 3.78 M/uL (4.00-5.50); WHITE BLOOD COUNT 7.6 K/uL (4.1-10.2)
[2017-11-03 07:01] LABS: PLAT.SUFFICIENCY ADEQUATE
[2017-11-03 07:09] LABS: PLATELET COUNT UNABLE TO REPORT K/uL (156-360)
[2017-11-03 07:10] LABS: ALBUMIN 2.6 G/DL (3.2-4.8); ALKALINE PHOSPHATASE 115 IU/L (3-129); ALT (GPT) 22 IU/L (3-49); AST (GOT) 55 IU/L (2-34); CHLORIDE 97 MEQ/L (99-109); CREATININE 0.9 MG/DL (0.6-1.3); DIRECT BILIRUBIN 0.8 mg/dL (0.0-0.3); GFR ESTIMATE (CALCULATED) > 59 mL/min/ (58.99-99999); GLUCOSE 90 mg/dL (70-99); POTASSIUM 4.5 MEQ/L (3.7-5.4); SODIUM 128 MEQ/L (136-147); TOTAL BILIRUBIN 2.3 MG/DL (0.0-1.0); TOTAL PROTEIN 5.8 G/DL (6.4-8.3); UREA NITROGEN (BUN) 20 mg/dL (9-23)
[2017-11-03 08:16] VITALS: BP 102/63
[2017-11-03 15:36] VITALS: BP 110/66
[2017-11-03 23:53] VITALS: BP 102/62
[2017-11-04 07:00] LABS: BASOPHIL (%) 0.5 % (0-1); EOSINOPHIL COUNT 0.1 K/uL (0-0.3); HEMATOCRIT 29.6 % (38.0-50.0); HEMOGLOBIN 9.9 G/DL (12.5-16.6); IMMATURE GRANULOCYTE (%) 0.6 % (0.0-0.7); LYMPHOCYTE (%) 29.8 % (15-42); LYMPHOCYTE COUNT 2.6 K/uL (1.0-2.8); MCH 27.3 PG (29.0-34.0); MCHC 33.4 G/DL (30.0-36.0); MCV 81.5 FL (86-99); MONOCYTE (%) 14.8 % (3-12); MONOCYTE COUNT 1.3 K/uL (0-0.8); NEUTROPHIL (%) 53.3 % (45-76); NEUTROPHIL COUNT 4.7 K/uL (1.8-6.4); RBC DIS.WIDTH-CV 17.1 % (11.8-14.6); RBC DIS.WIDTH-SD 50.1 % (39-53); RED BLOOD COUNT 3.63 M/uL (4.00-5.50); WHITE BLOOD COUNT 8.8 K/uL (4.1-10.2)
[2017-11-04 07:02] LABS: PLATELET COUNT 169 K/uL (156-360)
[2017-11-04 08:10] LABS: CHLORIDE 98 MEQ/L (99-109); GFR ESTIMATE (CALCULATED) > 59 mL/min/ (58.99-99999); GLUCOSE 83 mg/dL (70-99); IRON 49 MCG/DL (35-150); POTASSIUM 4.4 MEQ/L (3.7-5.4); SODIUM 126 MEQ/L (136-147); TRANSFERRIN (TIBC) 236.2 mg/dL (215-380); TRANSFERRIN SATUR. 21 % (20-55); UREA NITROGEN (BUN) 21 mg/dL (9-23)
[2017-11-04 08:34] VITALS: BP 94/61
[2017-11-04 09:10] LABS: THYROTROPIN (TSH) 2.4 MIU/L (0.4-5.5)
[2017-11-04 09:15] LABS: FERRITIN 53 NG/ML (22-322)
[2017-11-04 16:07] VITALS: BP 131/64
[2017-11-05 01:03] VITALS: BP 130/58
[2017-11-05 06:26] LABS: BASOPHIL (%) 0.4 % (0-1); EOSINOPHIL (%) 1.1 % (0-5); EOSINOPHIL COUNT 0.1 K/uL (0-0.3); HEMATOCRIT 27.6 % (38.0-50.0); HEMOGLOBIN 9.3 G/DL (12.5-16.6); IMMATURE GRANULOCYTE (%) 0.5 % (0.0-0.7); LYMPHOCYTE (%) 33.4 % (15-42); LYMPHOCYTE COUNT 2.7 K/uL (1.0-2.8); MCH 27.3 PG (29.0-34.0); MCHC 33.7 G/DL (30.0-36.0); MCV 80.9 FL (86-99); MONOCYTE (%) 14.6 % (3-12); MONOCYTE COUNT 1.2 K/uL (0-0.8); NEUTROPHIL COUNT 4.1 K/uL (1.8-6.4); PLATELET COUNT 153 K/uL (156-360); RBC DIS.WIDTH-CV 16.9 % (11.8-14.6); RBC DIS.WIDTH-SD 48.8 % (39-53); RED BLOOD COUNT 3.41 M/uL (4.00-5.50); WHITE BLOOD COUNT 8.1 K/uL (4.1-10.2)
[2017-11-05 06:53] LABS: CHLORIDE 98 MEQ/L (99-109); GFR ESTIMATE (CALCULATED) > 59 mL/min/ (58.99-99999); GLUCOSE 86 mg/dL (70-99); POTASSIUM 4.3 MEQ/L (3.7-5.4); SODIUM 127 MEQ/L (136-147); UREA NITROGEN (BUN) 23 mg/dL (9-23)
[2017-11-05 07:49] VITALS: BP 112/66
[2017-11-05] MEDS ORDERED: XIFAXAN550 MG PO (11:36)
[2017-11-05] MEDS ORDERED: SPIRONOLACTONE25 MG PO (11:38)
[2017-11-05] MEDS ORDERED: MORPHINE CON20 MG/M1 PO (11:38)
[2017-11-05] MEDS ORDERED: ATIVAN INTE2 MG/1 ML PO (11:38)
== END 2017-11-05 14:36 | disposition hospice, home (50) | DRG 433 ==
LOC: EME → EDBD 10:03 → EME 10:03 → EDOF 13:37 → 3EAST 13:37 → ENRESERV 13:40 → CANRESERV 13:48 → ENRESERV 14:45 → 3EAST 15:55
PROVIDERS: Emergency Medicine; Hospitalist; Internal Medicine; Internal Medicine Nephrology
DX: K70.40 Alcoholic hepatic failure without coma (principal); E87.1 Hypo-osmolality and hyponatremia; K70.31 Alcoholic cirrhosis of liver with ascites; E87.70 Fluid overload, unspecified; F10.20 Alcohol dependence, uncomplicated; B19.20 Unspecified viral hepatitis C without hepatic coma; I85.10 Secondary esophageal varices without bleeding; K76.6 Portal hypertension; K31.89 Other diseases of stomach and duodenum; D63.8 Anemia in other chronic diseases classified elsewhere; Z66 Do not resuscitate; F41.9 Anxiety disorder, unspecified; F32.9 Major depressive disorder, single episode, unspecified; F03.90 Unspecified dementia, unspecified severity, without behavioral disturbance, psychotic disturbance, mood disturbance, and anxiety; E03.9 Hypothyroidism, unspecified; J45.909 Unspecified asthma, uncomplicated; G89.29 Other chronic pain; Z96.611 Presence of right artificial shoulder joint; Z87.891 Personal history of nicotine dependence; Z85.819 Personal history of malignant neoplasm of unspecified site of lip, oral cavity, and pharynx
CPT/HCPCS: 36415; 49083; 70450; 71045; 74177; 80048; 80053; 80076; 81003; 82140; 82533 91; 82607; 82728; 83540; 83605; 83935; 84157; 84300; 84443; 84466; 85025; 85610; 85730; 87040; 87070; 87075; 87205; 88108; 89051; 93005; 99281; 99285; J0696; J1644; J3010